=== PATIENT | female | born 1955 | race Caucasian/White ===

== ENCOUNTER 2019-05-28 20:15 | Emergency (ER) | payer BC ==
[~2019-05-28] VITALS: Ht 165.1 cm; Wt 66.2 kg
--- NOTE | 2019-05-28 20:37 | PHYS DOC ---
Adult General Chief Complaint Chief Complaint: SKIN RASH/ABSCESS.. " I ve seen Dr. Javier.. and Dermatology... No one seems to know what this rash is... Dr. Javier started me on some stuff for scabies...".." This itching is driving [employer]..." HPI HPI Patient is a 64 year old female who presents with above hx and complaints of rash that appears to be a nonspecific dermatitis. There are some characteristics which be suggestive of scabies. Patient has done one treatment for scabies. No recent travel or specific ill contacts. Has seen dermatologists is in the past. Patient denies any new soaps oral screams or other changes in her life. No recent antibiotics. Patient has been using a Internet sulfide preparation which she feels has helped the rash. She normally follows Dr. Mello. No history of travel or specific ill contacts. Has started using hydrocortisone cream on some areas of rash. Review of Systems Review of Systems Constitutional: Denies fever or chills [] Eyes: Denies change in visual acuity, redness, or eye pain [] HENT: Denies nasal congestion or sore throat [] Respiratory: Denies cough or shortness of breath [] Cardiovascular: No additional information not addressed in HPI [] GI: Denies abdominal pain, nausea, vomiting, bloody stools or diarrhea [] : Denies dysuria or hematuria [] Musculoskeletal: Denies back pain or joint pain [] Integument: Complains of rash or skin lesions [] Neurologic: Denies headache, focal weakness or sensory changes [] Endocrine: Denies polyuria or polydipsia [] All other systems were reviewed and found to be within normal limits, except as documented in this note. Family History Family History Noncontributory Current Medications Current Medications See nursing for home meds Allergies Allergies No known drug allergies Physical Exam Physical Exam Constitutional: Moderate acute distress, non-toxic appearance. [] HENT: Normocephalic, atraumatic, bilateral external ears normal, oropharynx moist, no oral exudates, nose normal. Dandruff Eyes: PERRLA, EOMI, conjunctiva normal, no discharge. [] Neck: Normal range of motion, no tenderness, supple, no stridor. [] Cardiovascular:Heart rate regular rhythm, no murmur [] Lungs & Thorax: Bilateral breath sounds clear to auscultation [] Abdomen: Bowel sounds normal, soft, no tenderness, no masses, no pulsatile masses. [] Skin: Warm, dry, euvolemic dermatitis rash- eczema versus contact dermatitis. Does have some characteristics of scabies. Excoriations from her scratching Back: No tenderness, no CVA tenderness. [] Extremities: No tenderness, no cyanosis, no clubbing, ROM intact, no edema. [] Neurologic: Alert and oriented X 3, normal motor function, normal sensory function, no focal deficits noted. [] Psychologic: Affect anxious, judgement normal, mood normal. [] EKG EKG [] Radiology/Procedures Radiology/Procedures [] Course & Med Decision Making Course & Med Decision Making Pertinent Labs and Imaging studies reviewed. (See chart for details) Sent to stop. Other apical creams and skin preparations until better a characterization a rash in be made. Would complete scabies treatment. May use hydrocortisone cream. Patient to get one Depo-Medrol shot of steroids here. Patient advised to use Benadryl 25-50 mg 4 times a day for itching. For marked itching may use doxepin 50 mg but is very sedating. Patient follow-up Dr. Mello. Patient return if any concerns. Impression- 1. Dermatitis 2. Pruritus [] Dragon Disclaimer Dragon Disclaimer This electronic medical record was generated, in whole or in part, using a voice recognition dictation system. Departure Departure: Disposition: HOME/RESIDENCE PRIOR TO ADM Condition: STABLE Referrals: CATERINA JAVIER MD (PCP) Scripts Doxepin Hcl (DOXEPIN HCL) 50 Mg Capsule 50 MG PO QIDPRN PRN for ITCHING, #30 CAP Prov: ABBI RICE MD 05/28/19 Lindane (LINDANE) 60 Ml Shampoo 60 ML TP WEEKLY for scabies, #3 MISC Prov: ABBI RICE MD 05/28/19 Dragon Disclaimer This chart was dictated in whole or in part using Voice Recognition software in a busy, high-work load, and often noisy Emergency Department environment. It may contain unintended and wholly unrecognized errors or omissions. ABBI RICE MD May 28, 2019 20:37
[2019-05-28] MEDS ORDERED: DOXE50CA PO (22:37)
[2019-05-28] MEDS ORDERED: LIND60SH2 TP (22:37)
[2019-05-28] MEDS ORDERED: methylPREDNISolone ACETATE 40 MG/ML VIAL. IM ONE (22:45)
[2019-05-28 23:30] VITALS: BP 135/72
== END 2019-05-28 23:39 | disposition home or self-care (01) ==
LOC: ER 20:15
DX: L30.9 Dermatitis, unspecified (principal); L29.9 Pruritus, unspecified
CPT/HCPCS: 96372; 99283; J1030